=== PATIENT | female | born 1990 | race Caucasian/White ===

== ENCOUNTER 2016-10-08 08:20 | Emergency (ER) | payer BC ==
[~2016-10-08] VITALS: Ht 162.6 cm; Wt 50.8 kg
[2016-10-08] MEDS ORDERED: Lidocaine 2% Visc 15ml soln ORAL ONE (08:45)
[2016-10-08 09:29] LABS: APPEARANCE,URINE CLEAR; KETONES,URINE NEGATIVE (NEGATIVE); LEUKOCYTE ESTERASE ,URINE NEGATIVE (NEGATIVE); NITRITE,URINE NEGATIVE (NEGATIVE); PH,URINE 6.5 (4.5-8.0); PROTEIN,URINE NEGATIVE (NEGATIVE); UROBILINOGEN,URINE NORMAL MG/DL (0.0-1.0)
[2016-10-08 09:31] LABS: ALANINE AMINOTRANSFERASE 10 U/L (3-33); ANION GAP 14 (5-15); ASPARTATE AMINO TRANSFERASE 21 U/L (5-40); CALCIUM 9.4 mg/dL (8.6-10.2); CARBON DIOXIDE 25 mEQ/L (20-30); CHLORIDE 99 mEQ/L (98-107); CREATININE 0.6 mg/dL (0.5-0.9); GLOMERULAR FILTRATION RATE > 60 mL/min (>60); HEMOLYSIS 4; LIPASE 24 U/L (< 60); SODIUM 138 mEQ/L (135-145); TOTAL PROTEIN 6.7 g/dL (6.6-8.7)
[2016-10-08 09:35] LABS: MEAN CORPUSCULAR HEMOGLOBIN 29.1 PG (27.0-31.0); MEAN CORPUSCULAR HGB CONC 33.9 G/DL (32.0-36.0); MEAN CORPUSCULAR VOLUME 86 FL (80-99); MEAN PLATELET VOLUME 8.3 FL (6.5-10.1); PLATELET COUNT 230 K/UL (150-450); RED BLOOD COUNT 5.11 M/UL (4.20-5.40); RED CELL DISTRIBUTION WIDTH 11.6 % (11.6-14.8); WHITE BLOOD COUNT 14.6 K/UL (4.8-10.8)
[2016-10-08 10:07] LABS: BAND NEUTROPHILS % (MANUAL) 0 % (0-8); BASOPHILS % (MANUAL) 0 % (0-2); EOSINOPHILS % (MANUAL) 0 % (0-3); LYMPHOCYTES % (MANUAL) 8 % (20-45); NEUTROPHILS % (MANUAL) 87 % (45-75); PLATELET ESTIMATE ADEQUATE; PLATELET MORPHOLOGY NORMAL; TOTAL CELLS COUNTED 100
--- NOTE | 2016-10-08 14:00 | Emergency Room Report ---
History of Present Illness General Chief Complaint: Abdominal Pain Source: Patient Present Illness HPI This patient states that she developed abdominal pain in her upper abdomen about 30 minutes after eating a sushi dinner yesterday. She that she has had nausea but no vomiting. She did have one episode of diarrhea yesterday. She states that the symptoms come in waves and she'll get nauseated and have abdominal cramping. She denies fever or chills. She denies chest pain or shortness of breath. She was with other people who ate the same food as her yesterday evening and they are not ill. She has no other complaints. Allergies: Coded Allergies: No Known Allergies (Unverified , 10/08/16) Patient History Past Medical History: none, see triage record Past Surgical History: none Social History: Denies: alcohol use, drug use, smoking Last Menstrual Period: 09/27/16 Now: No Reviewed Nursing Documentation: PMH: Agreed, PSxH: Agreed Nursing Documentation-PMH Past Medical History: No Stated History Review of Systems All Other Systems: negative except mentioned in HPI Physical Exam Vital Signs Date Time Temp Pulse Resp B/P Pulse Ox O2 Delivery O2 Flow Rate FiO2 10/08/16 08:29 98.2 70 16 106/72 100 Room Air Sp02 EP Interpretation: reviewed, normal General Appearance: no apparent distress, alert, GCS 15, non-toxic Head: normocephalic, atraumatic Eyes: bilateral eye PERRL, bilateral eye normal inspection ENT: hearing grossly normal, normal pharynx, no angioedema, normal voice Neck: full range of motion, supple/symm/no masses Respiratory: chest non-tender, lungs clear, normal breath sounds, speaking full sentences Cardiovascular #1: regular rate, rhythm, no edema Gastrointestinal: normal bowel sounds, soft, non-distended, no guarding, no rebound, tenderness - TTP in RLQ and epigastrium Rectal: deferred Musculoskeletal: back normal, gait/station normal, normal range of motion, non- tender Neurologic: alert, oriented x3, responsive, motor strength/tone normal, sensory intact, speech normal Psychiatric: judgement/insight normal, memory normal, mood/affect normal, no suicidal/homicidal ideation Skin: normal color, no rash, warm/dry, well hydrated Medical Decision Making Diagnostic Impression: Primary Impression: Abdominal pain Additional Impressions: Nausea Diarrhea ER Course This patient presents with abdominal pain, nausea and an episode of diarrhea. She's had intermittent abdominal cramping. On physical exam the patient is tender to palpation in the right lower quadrant and had an elevated white blood cell count of 14. Therefore, I felt that I should obtain a CT of the abdomen and pelvis to rule out appendicitis. CT shows no evidence of appendicitis. Patient is well appearing overall. During the patient's ED course had resolution of her symptoms. She had no further vomiting, diarrhea or abdominal pain. At this time, I have a low suspicion for serious bacterial infection. The patient was given close return precautions and followup instructions. Labs Test 10/08/16 09:03 White Blood Count 14.6 K/UL (4.8-10.8) Red Blood Count 5.11 M/UL (4.20-5.40) Hemoglobin 14.9 G/DL (12.0-16.0) Hematocrit 43.8 % (37.0-47.0) Mean Corpuscular Volume 86 FL (80-99) Mean Corpuscular Hemoglobin 29.1 PG (27.0-31.0) Mean Corpuscular Hemoglobin Concent 33.9 G/DL (32.0-36.0) Red Cell Distribution Width 11.6 % (11.6-14.8) Platelet Count 230 K/UL (150-450) Mean Platelet Volume 8.3 FL (6.5-10.1) Neutrophils (%) (Auto) % (45.0-75.0) Lymphocytes (%) (Auto) % (20.0-45.0) Monocytes (%) (Auto) % (1.0-10.0) Eosinophils (%) (Auto) % (0.0-3.0) Basophils (%) (Auto) % (0.0-2.0) Differential Total Cells Counted 100 Neutrophils % (Manual) 87 % (45-75) Lymphocytes % (Manual) 8 % (20-45) Monocytes % (Manual) 5 % (1-10) Eosinophils % (Manual) 0 % (0-3) Basophils % (Manual) 0 % (0-2) Band Neutrophils 0 % (0-8) Platelet Estimate Adequate Platelet Morphology Normal Red Blood Cell Morphology Normal Urine Color Pale yellow Urine Appearance Clear Urine pH 6.5 (4.5-8.0) Urine Specific [place] 1.015 (1.005-1.035) Urine Protein Negative (NEGATIVE) Urine Glucose (UA) Negative (NEGATIVE) Urine Ketones Negative (NEGATIVE) Urine Occult Blood Negative (NEGATIVE) Urine Nitrite Negative (NEGATIVE) Urine Bilirubin Negative (NEGATIVE) Urine Urobilinogen Normal MG/DL (0.0-1.0) Urine Leukocyte Esterase Negative (NEGATIVE) Urine HCG, Qualitative Negative Sodium Level 138 mEQ/L (135-145) Potassium Level 4.0 mEQ/L (3.4-4.9) Chloride Level 99 mEQ/L (98-107) Carbon Dioxide Level 25 mEQ/L (20-30) Anion Gap 14 (5-15) Blood Urea Nitrogen 11 mg/dL (7-23) Creatinine 0.6 mg/dL (0.5-0.9) Estimat Glomerular Filtration Rate > 60 mL/min (>60) Glucose Level 107 mg/dL (74-106) Calcium Level 9.4 mg/dL (8.6-10.2) Total Bilirubin 0.4 mg/dL (0.0-1.2) Aspartate Amino Transf (AST/SGOT) 21 U/L (5-40) Alanine Aminotransferase (ALT/SGPT) 10 U/L (3-33) Alkaline Phosphatase 49 U/L (35-104) Total Protein 6.7 g/dL (6.6-8.7) Albumin 4.5 g/dL (3.5-5.2) Globulin 2.2 g/dL Albumin/Globulin Ratio 2.0 (1.0-2.7) Lipase 24 U/L (< 60) CT/MRI/US Diagnostic Results CT/MRI/US Diagnostic Results : Imaging Test Ordered: CT abd/pelvis Impression No evidence of appendicitis. Trace free fluid in the pelvic cul-de-sac. A 2.2 cm cyst is seen in the right ovary. See official report. Last Vital Signs Date Time Temp Pulse Resp B/P Pulse Ox O2 Delivery O2 Flow Rate FiO2 10/08/16 08:29 98.2 70 16 106/72 100 Room Air Disposition: HOME, SELF-CARE Condition: Improved Referrals: NOT CHOSEN IPA/,REFERRING (PCP) Patient Instructions: Abdominal Pain, Adult MARY ANNE DE SANTIAGO D.O. Oct 08, 2016 14:00
[2016-10-08 14:03] VITALS: BP 121/68
== END 2016-10-08 14:05 | disposition home or self-care (01) ==
LOC: EMR 09:00
DX: R10.9 Unspecified abdominal pain (principal); R11.0 Nausea; R19.7 Diarrhea, unspecified; N83.201 Unspecified ovarian cyst, right side
CPT/HCPCS: 36415; 74177; 80053; 81003; 81025; 83690; 85007; 85025; 96374; 96375; 99284; J2405; Q9967

== ENCOUNTER 2017-07-06 02:48 | Inpatient (IN) | payer BC ==
[~2017-07-06] VITALS: Ht 162.6 cm; Wt 53.1 kg
[2017-07-06] VITALS (12 sets, daily range): BP systolic 89–175; BP diastolic 55–102
[2017-07-06] MEDS ORDERED: Morphine Sulfate 2mg/ml Inj IVP PRN ×3 (06:15→17:45)
[2017-07-06] MEDS ORDERED: Norco 5mg/325mg tab ORAL PRN (06:15)
[2017-07-06 09:00] LABS: BASOPHILS % (AUTO) 0.5 % (0.0-2.0); EOSINOPHILS % (AUTO) 0.5 % (0.0-3.0); HEMATOCRIT 39.2 % (37.0-47.0); LYMPHOCYTES % (AUTO) 15.3 % (20.0-45.0); MEAN CORPUSCULAR VOLUME 86 FL (80-99); MONOCYTES % (AUTO) 10.3 % (1.0-10.0); NEUTROPHILS % (AUTO) 73.5 % (45.0-75.0); PLATELET COUNT 205 K/UL (150-450); RED BLOOD COUNT 4.57 M/UL (4.20-5.40); RED CELL DISTRIBUTION WIDTH 10.9 % (11.6-14.8); WHITE BLOOD COUNT 10.3 K/UL (4.8-10.8)
[2017-07-06] MEDS ORDERED: D5 1/2NS 1,000 ML IV SCH (09:00)
[2017-07-06 09:13] LABS: ANION GAP 9 mmol/L (5-15); BLOOD UREA NITROGEN 6 mg/dL (7-18); CALCIUM 7.6 MG/DL (8.5-10.1); CARBON DIOXIDE 25 MMOL/L (21-32); CHLORIDE 106 MMOL/L (98-107); CREATININE 0.7 MG/DL (0.55-1.30); PHOSPHORUS 3.6 MG/DL (2.5-4.9); POTASSIUM 3.4 MMOL/L (3.5-5.1); SODIUM 140 MMOL/L (136-145)
[2017-07-06] MEDS ORDERED: LR 1000ml ONE (10:00)
[2017-07-06] MEDS ORDERED: Propofol 200mg/20ml IV ONE (10:00)
[2017-07-06] MEDS ORDERED: Midazolam 2mg/2ml Inj ONE (10:00)
[2017-07-06] MEDS ORDERED: fentaNYL 100 mcg/2 mL IV ONE (10:00)
[2017-07-06] MEDS ORDERED: NS Irrig 1000ml ONE (10:00)
[2017-07-06] MEDS ORDERED: Zemuron 50mg/5ml Inj IV ONE (10:00)
[2017-07-06] MEDS ORDERED: Sterile Water Irrig 1000ml IRRIG ONE (10:00)
[2017-07-06] MEDS ORDERED: Hydromorphone 0.5mg/0.5ml inj ONE (10:00)
[2017-07-06] MEDS: cefTRIAXone 1 GM in D5W 55 ML IVPB SCH (10:40)
--- NOTE | 2017-07-06 11:00 | History & Physical ---
History and Physical History & Physicial Diuctated for Int Med-Dr Mccormack no. [id number]. NOMI REESE Jul 06, 2017 11:00
--- NOTE | 2017-07-06 11:56 | Pre-Procedure Note/Attestation ---
Pre-Procedure Note/Attestation Complete Prior to Procedure Procedure Narrative: lap appy Indications for Procedure Pre-Operative Diagnosis: acute appendicitis Attestation I attest that I discussed the nature of the procedure; its benefits; risks and complications; and alternatives (and the risks and benefits of such alternatives ), prior to the procedure, with the patient (or the patient's legal financial services sales representative). I attest that, if there was a reasonable possibility of needing a blood transfusion, the patient (or the patient's legal financial services sales representative) was given the [facility] standardized written summary, pursuant to the Robert Qian Blood Safety Act ([place] Health and Safety Code # 1645, as amended). I attest that I re-evaluated the patient just prior to the surgery and that there has been no change in the patient's H&P, except as documented below: Dilip Ramirez Jul 06, 2017 11:56
--- NOTE | 2017-07-06 12:02 | Consultation ---
History of Present Illness General Date patient seen: Jul 06, 2017 Reason for Consultation: acute appendicitis Present Illness HPI 26 year old otherwise healthy female was transferred from [place] for acute appendicitis. As per patient, she was in her normal state of health until last night when she began to note some cramping RLQ abdominal pain. Pain described as 7-9/10 cramping RLQ pain without radiation. Associated nausea and self induced emesis. no fever or chills. Pain severe causing her to kneel over and wait to be taken to hospital. has never had prior similar symptoms. normal BM' s. no pmhx, no pshx, no meds, no fhx. does not smoke or do drugs. social etoh. Allergies: Coded Allergies: No Known Allergies (Unverified , 10/08/16) Patient History History Provided By: Patient Healthcare decision maker Resuscitation status Full Code Advanced Directive on File No Past Medical/Surgical History Past Medical/Surgical History: (1) Appendicitis, acute Review of Systems Constitutional: Denies: no symptoms, see HPI, chills, sweats, fever, malaise, weakness, other Eye: Denies: no symptoms, see HPI, eye pain, blurred vision, tearing, double vision, nose pain, nose congestion, acuity changes, discharge, other ENT: Denies: no symptoms, see HPI, ear pain, ear discharge, nose pain, nose congestion, throat pain, throat swelling, mouth pain, hearing loss, nasal discharge, other Respiratory: Denies: no symptoms, see HPI, cough, orthopnea, shortness of breath, stridor, wheezing, JOSEPH, sputum, other Cardiovascular: Denies: no symptoms, see HPI, chest pain, edema, palpitations, syncope, PND, other Gastrointestinal: Reports: abdominal pain, nausea, vomiting Genitourinary: Denies: no symptoms, see HPI, discharge, dysuria, frequency, hematuria, pain, retention, incontinence, urgency, vag bleed/dc, other Musculoskeletal: Denies: no symptoms, see HPI, back pain, gout, joint pain, joint swelling, muscle pain, muscle stiffness, other Skin: Denies: no symptoms, see HPI, rash, change in color, change in hair/nails , dryness, lesions, other Psychiatric: Denies: no symptoms, see HPI, prior hx, anxiety, depressed feelings, emotional problems, SI, HI, hallucinations, other Neurological: Denies: no symptoms, see HPI, headache, numbness, paresthesia, seizure, tingling, tremors, focal weakness, syncope, dizziness, other Endocrine: Denies: no symptoms, see HPI, excessive sweating, flushing, intolerance to temperature, increased thirst, increased urine, unexplained weight loss, other Hematologic/Lymphatic: Denies: no symptoms, see HPI, anemia, blood clots, easy bleeding, easy bruising, swollen glands, diathesis, other Physical Exam General Appearance: no apparent distress Lines, tubes and drains: peripheral HEENT: normocephalic, atraumatic, mucous membranes moist, PERRL Neck: supple, normal inspection Respiratory/Chest: lungs clear, normal breath sounds, no respiratory distress, no accessory muscle use Cardiovascular/Chest: normal peripheral pulses, normal rate, regular rhythm Abdomen: normal bowel sounds, soft, no organomegaly, no mass, guarding, rebound , tender, other - RLQ tendneress with guarding. rebound. Extremities: non-tender, normal inspection Skin Exam: normal pigmentation, warm/dry Neurologic: furniture crater II-XII grossly normal, alert, oriented x 3, responsive Last 24 Hour Vital Signs Date Time Temp Pulse Resp B/P (MAP) Pulse Ox O2 Delivery O2 Flow Rate FiO2 07/06/17 11:09 97.3 07/06/17 08:00 97.3 69 16 89/55 97 07/06/17 07:19 97.9 79 19 100/62 98 Room Air Laboratory Tests Test 07/06/17 08:25 White Blood Count 10.3 K/UL (4.8-10.8) Red Blood Count 4.57 M/UL (4.20-5.40) Hemoglobin 13.0 G/DL (12.0-16.0) Hematocrit 39.2 % (37.0-47.0) Mean Corpuscular Volume 86 FL (80-99) Mean Corpuscular Hemoglobin 28.5 PG (27.0-31.0) Mean Corpuscular Hemoglobin Concent 33.2 G/DL (32.0-36.0) Red Cell Distribution Width 10.9 % (11.6-14.8) L Platelet Count 205 K/UL (150-450) Mean Platelet Volume 7.8 FL (6.5-10.1) Neutrophils (%) (Auto) 73.5 % (45.0-75.0) Lymphocytes (%) (Auto) 15.3 % (20.0-45.0) L Monocytes (%) (Auto) 10.3 % (1.0-10.0) H Eosinophils (%) (Auto) 0.5 % (0.0-3.0) Basophils (%) (Auto) 0.5 % (0.0-2.0) Prothrombin Time 10.2 SEC (9.30-11.50) Prothromb Time International Ratio 1.0 (0.9-1.1) Activated Partial Thromboplast Time 30 SEC (23-33) Sodium Level 140 MMOL/L (136-145) Potassium Level 3.4 MMOL/L (3.5-5.1) L Chloride Level 106 MMOL/L (98-107) Carbon Dioxide Level 25 MMOL/L (21-32) Anion Gap 9 mmol/L (5-15) Blood Urea Nitrogen 6 mg/dL (7-18) L Creatinine 0.7 MG/DL (0.55-1.30) Estimat Glomerular Filtration Rate > 60 mL/min (>60) Glucose Level 99 MG/DL (74-106) Calcium Level 7.6 MG/DL (8.5-10.1) L Phosphorus Level 3.6 MG/DL (2.5-4.9) Magnesium Level 1.8 MG/DL (1.8-2.4) Height (Feet): 5 Height (Inches): 4.00 Weight (Pounds): 117 Medications Current Medications Medications (Trade) Dose Ordered Sig/Charlie Route PRN Reason Start Time Stop Time Status Last Admin Dose Admin Acetaminophen (Tylenol) 650 mg Q6H PRN ORAL Mild Pain/Temp > 100.5 07/06/17 06:15 08/05/17 06:14 Acetaminophen/ Hydrocodone Bitart ([place] 5/325) 1 tab Q6H PRN ORAL Mild to Moderate Pain 07/06/17 06:15 07/13/17 06:14 Ceftriaxone Sodium 1 gm/ Dextrose 55 ml @ 110 mls/hr DAILY IVPB 07/06/17 09:30 07/13/17 09:29 07/06/17 10:40 Dextrose/Sodium Chloride 1,000 ml @ 100 mls/hr Q10H IV 07/06/17 09:00 08/05/17 08:59 07/06/17 11:31 Metronidazole 100 ml @ 100 mls/hr Q8HR IVPB 07/06/17 14:00 07/13/17 13:59 Morphine Sulfate (Morphine Sulfate) 2 mg Q4H PRN IVP Severe Pain (Pain Scale 7-10) 07/06/17 06:15 07/13/17 06:14 07/06/17 10:39 Ondansetron HCl (Zofran) 4 mg Q4H PRN IVP Nausea & Vomiting 07/06/17 06:15 08/05/17 06:14 07/06/17 10:39 Assessment/Plan Problem List: (1) Appendicitis, acute Assessment & Plan: 26F with acute appendicitis. afebrile, HD stable, exam as above. CT reviewed. initially with WBC 15k. -to OR for lap appy consent npo iv fluids abx ICD Codes: K35.80 - Unspecified acute appendicitis SNOMED: [id number] Status: stable Dilip Ramirez Jul 06, 2017 12:01
[2017-07-06] MEDS ORDERED: Lidocaine 1% 10mg/ml/EPI 0.01mg/ml 50ml INJ ONE (13:37)
--- NOTE | 2017-07-06 14:15 | History and Physical Report ---
DATE OF ADMISSION: 07/06/2017 CHIEF COMPLAINT: The patient is a 26-year-old white female presents with complaint of abdominal pain. HISTORY OF PRESENT ILLNESS: History of present illness began yesterday afternoon, 07/05/2017. The patient began to experience periumbilical pain. The patient denies fevers or chills. The patient complains of nausea with vomiting. The patient presented initially to [facility] emergency room. CT of the abdomen showed free fluid in the pelvis consistent with acute appendicitis. The patient is transferred to [facility] for insurance purposes. The patient is admitted for abdominal pain to rule out acute appendicitis. REVIEW OF SYSTEMS: CONSTITUTIONAL: The patient denies weight loss or weight gain. The patient denies fevers or chills. HEENT: The patient denies ear or throat pain. The patient denies headache. CARDIOVASCULAR: The patient denies palpitations or chest pain. CHEST: The patient denies wheeze or shortness of breath. ABDOMEN: The patient complains of periumbilical pain as above. The patient denies diarrhea or constipation. The patient complains of nausea with vomiting. GENITOURINARY: The patient denies dysuria or increased frequency of urination. NEUROMUSCULAR: The patient denies seizures or generalized weakness. PAST MEDICAL HISTORY: The patient denies. The patient states her last menstrual period was 06/17/2017. PAST SURGICAL HISTORY: The patient denies. CURRENT MEDICATIONS: The patient denies. ALLERGIES: No known drug allergies. SOCIAL HISTORY: The patient has a long-term boyfriend. The patient denies tobacco use. The patient admits to social alcohol use. PHYSICAL EXAMINATION: VITAL SIGNS: On admission, temperature 97.9, respirations 19, pulse 79, and blood pressure 100/62. GENERAL: The patient is well developed, well nourished white female, in no apparent distress. HEENT: Eyes, pupils are equal and responsive to light and accommodation. Extraocular movements are intact. NECK: Supple without lymphadenopathy. CHEST: Lungs are clear to auscultation bilaterally without wheezes or rales. CARDIOVASCULAR: Regular rhythm and rate. S1 and S2 normal without murmurs, rubs, or gallops. ABDOMEN: Soft, nondistended with decreased bowel sounds. There is tenderness to palpation right lower quadrant. There is voluntary guarding noted. There is no rebound noted. EXTREMITIES: Negative for clubbing, cyanosis, or edema. RECTAL/GENITAL: Refused. NEUROLOGIC: Cranial nerves II through XII are grossly intact without focal deficits. Motor strength is 5/5 bilaterally. Deep tendon reflexes are 2+ plantar. LABORATORY STUDIES: WBC 15.7, hemoglobin 13.2, hematocrit 38.6, and platelets 137,000. Sodium 137, potassium 3.4, chloride 104, CO2 25, BUN 7, creatinine 0.68, and glucose 95. Liver function tests within normal limits. Urinalysis showed negative leukocyte esterase. ASSESSMENT: This is a 26-year-old white female: 1. Abdominal pain. 2. Nausea with vomiting. 3. Probable acute appendicitis. TREATMENT: 1. Abdominal pain/nausea/vomiting/appendicitis. 2. A General Surgery consultation was obtained with Dr. Ramirez. 3. An initial CAT scan showed mild free fluid in the pelvis consistent with acute appendicitis. We will follow recommendations of Surgery. Brian Roberts M.D. DR: SUSAN JOB#: [id number] CC:
[2017-07-06] MEDS ORDERED: NS Irrig 1000ml IRRIG ONE (15:00)
[2017-07-06] MEDS ORDERED: LR 1000ml 1,000 ML IVLG SCH (15:04)
--- NOTE | 2017-07-06 15:09 | Anethesia Preoperative Eval ---
Anesthesia Pre-op PMH/ROS General Date of Evaluation: Jul 06, 2017 Time of Evaluation: 14:12 Anesthesiologist: Almita ASA Score: ASA 1 Mallampati Score Class I : Soft palate, uvula, fauces, pillars visible Class II: Soft palate, uvula, fauces visible Class III: Soft palate, base of uvula visible Class IV: Only hard plate visible Mallampati Classification: Class I Surgeon: James Diagnosis: Acute appendicitis Surgical Procedure: Lap appy Allergies: Coded Allergies: No Known Allergies (Unverified , 10/08/16) Past Medical History Cardiovascular: Denies: HTN, CAD, PR, valve dz, arrhythmia, other Pulmonary: Denies: asthma, COPD, TOM, other Gastrointestinal/Genitourinary: Denies: GERD, CRI, ESRD, other Neurologic/Psychiatric: Denies: dementia, CVA, depression/anxiety, TIA, other Endocrine: Denies: DM, hypothyroidism, steroids, other HEENT: Denies: cataract (L), cataract (R), glaucoma, DOUGLAS (L), DOUGLAS (R), other Hematology/Immune: Denies: anemia, DVT, bleeding disorder, other Musculoskeletal/Integumentary: Denies: OA, RA, DJD, DDD, edema, other PMH Narrative: Denies significant PMH PSxH Narrative: Vaginal surgery Anesthesia Pre-op Phys. Exam Physician Exam Last Vital Signs Date Time Temp Pulse Resp B/P (MAP) Pulse Ox O2 Delivery O2 Flow Rate FiO2 07/06/17 11:09 97.3 07/06/17 08:00 69 16 89/55 97 07/06/17 07:19 Room Air Constitutional: NAD Neurologic: CN 2-12 intact Cardiovascular: RRR, no M/R/G Respiratory: CTA Gastrointestinal: S/NT/ND Airway Exam Mallampati Score: Class I MO: full ROM: full Teeth: intact Anesthesia Pre-op A/P Labs Hematology Test 07/06/17 08:25 White Blood Count 10.3 K/UL (4.8-10.8) Red Blood Count 4.57 M/UL (4.20-5.40) Hemoglobin 13.0 G/DL (12.0-16.0) Hematocrit 39.2 % (37.0-47.0) Mean Corpuscular Volume 86 FL (80-99) Mean Corpuscular Hemoglobin 28.5 PG (27.0-31.0) Mean Corpuscular Hemoglobin Concent 33.2 G/DL (32.0-36.0) Red Cell Distribution Width 10.9 % (11.6-14.8) L Platelet Count 205 K/UL (150-450) Mean Platelet Volume 7.8 FL (6.5-10.1) Neutrophils (%) (Auto) 73.5 % (45.0-75.0) Lymphocytes (%) (Auto) 15.3 % (20.0-45.0) L Monocytes (%) (Auto) 10.3 % (1.0-10.0) H Eosinophils (%) (Auto) 0.5 % (0.0-3.0) Basophils (%) (Auto) 0.5 % (0.0-2.0) Coagulation Test 07/06/17 08:25 Prothrombin Time 10.2 SEC (9.30-11.50) Prothromb Time International Ratio 1.0 (0.9-1.1) Activated Partial Thromboplast Time 30 SEC (23-33) Chemistry Test 07/06/17 08:25 Sodium Level 140 MMOL/L (136-145) Potassium Level 3.4 MMOL/L (3.5-5.1) L Chloride Level 106 MMOL/L (98-107) Carbon Dioxide Level 25 MMOL/L (21-32) Anion Gap 9 mmol/L (5-15) Blood Urea Nitrogen 6 mg/dL (7-18) L Creatinine 0.7 MG/DL (0.55-1.30) Estimat Glomerular Filtration Rate > 60 mL/min (>60) Glucose Level 99 MG/DL (74-106) Calcium Level 7.6 MG/DL (8.5-10.1) L Phosphorus Level 3.6 MG/DL (2.5-4.9) Magnesium Level 1.8 MG/DL (1.8-2.4) Urine Test Test 07/06/17 13:20 Urine HCG, Qualitative Negative Risk Assessment & Plan Assessment: Acute appendicitis in a healthy female Plan: GETA Status Change Before Surgery: No Pre-Antibiotics Drug: Ancef Given Within 1 Hr of Incision: Yes Time Given: 14:32 HANS MAURO M.D. Jul 06, 2017 15:09
--- NOTE | 2017-07-06 15:10 | Immediate Post-Op Evaluation ---
Immediate Post-Op Evalulation Immediate Post-Op Evalulation Procedure: Lap appy Date of Evaluation: Jul 06, 2017 Time of Evaluation: 16:12 IV Fluids: 1000 Blood Pressure Systolic: 104 Blood Pressure Diastolic: 61 Pulse Rate: 100 Respiratory Rate: 13 O2 Sat by Pulse Oximetry: 100 Temperature (Fahrenheit): 99.5 Pain Score (1-10): 1 Nausea: No Vomiting: No Complications No complications Patient Status: awake, patent, extubated, none Hydration Status: adequate Drug: Ancef Given Within 1 Hr of Incision: Yes Time Given: 14:32 HANS MAURO M.D. Jul 06, 2017 15:10
[2017-07-06] MEDS ORDERED: Meperidine 50mg/ml Inj(FOR RIGORS ONLY) IVP PRN (15:15)
[2017-07-06] MEDS ORDERED: LORazepam Inj 2mg/ml 1ml IV PRN (15:15)
[2017-07-06] MEDS ORDERED: DiphenhydrAMINE 50mg/ml Inj IVP PRN ×2 (15:15→16:45)
[2017-07-06] MEDS ORDERED: Hydromorphone 0.5mg/0.5ml inj IVP PRN (15:15)
--- NOTE | 2017-07-06 16:23 | Brief Operative Note ---
Immediate Post Operative Note Operative Note Pre-op Diagnosis: acute appendicitis Procedure: laparoscopic appendectomy Findings: consistent w/pre-op dx studies Surgeon: shiva Anesthesiologist: Tanner Anesthesia: general, local Specimen: yes - appendix Complications: none Condition: stable Fluids: see records Estimated Blood Loss: minimal Drains: none Implant(s) used?: No Dilip Ramirez Jul 06, 2017 16:23
[2017-07-06] MEDS ORDERED: Ketorolac 30mg Inj IV PRN (16:45)
[2017-07-06] MEDS ORDERED: Milk of Magnesia 30ml Ud ORAL PRN (16:45)
--- NOTE | 2017-07-06 17:30 | Operative Note - Dictated ---
DATE OF OPERATION: 07/06/2017 PREOPERATIVE DIAGNOSIS: Acute appendicitis. POSTOPERATIVE DIAGNOSIS: Acute appendicitis. OPERATION PERFORMED: Laparoscopic appendectomy. ATTENDING SURGEON: Dilip Ramirez M.D. SHANK RANDER: None. ANESTHESIOLOGIST: Robert Recio M.D. 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 COMPLICATIONS: None. ESTIMATED BLOOD LOSS: Minimal. IV FLUIDS: 1000 mL. SPECIMENS: Appendix sent to pathology for review. DRAINS: None. IMPLANTS: None. COUNTS: Sponge and needle count correct x2. WOUND CLASSIFICATION: Class 3. IV ANTIBIOTICS: The patient was given scheduled Rocephin and Flagyl for acute active inflammatory process. INDICATIONS FOR PROCEDURE: This is a 26-year-old female, who began to experience excruciating right lower quadrant abdominal pain one day prior to admission. The patient states that pain was acute on onset mainly in the right lower quadrant, cramping, 7 to 9/10 with associated nausea and self-induced emesis. The patient initially went to [place] emergency room for evaluation, at which time, was noted to have leukocytosis to 15,[address] scan, which demonstrated acute nonperforated appendicitis. The patient was then transferred to [facility] for remainder of care. On examination, the patient has focal right lower quadrant abdominal tenderness at McBurney's point. She had voluntary guarding and rebound as well. Given the above, appendectomy was indicated and recommended. The risks, benefits, and alternatives to surgery were discussed with the patient in detail. The patient expressed understanding and consented to surgery. OPERATIVE NOTE: The patient was taken to the operating room and placed on the operating table in supine position with bilateral arms out. All bony prominences were well padded with gel pads. Preoperative time-out was taken identifying the patient, procedure, operative staff, and surgical staff. SCDs were placed. No English catheter was inserted given the patient voided just prior to entering the operating room. The patient was on scheduled Rocephin and Flagyl for acute active inflammatory process prior to entering the operating room. General anesthesia was induced and the patient was intubated. The left arm was tucked. The abdomen was then clipped, prepped, and draped in standard surgical fashion. We began making an umbilical incision using a fresh #11 blade. Incision was carried down to the fascia, which was elevated and incised. Entry into the abdomen was confirmed visually using the open Gale technique without complication. The Gale trocar was then placed and the abdomen was insufflated to 12 to 15 mmHg. The patient tolerated the insufflation well. Laparoscope was inserted and no injury from initial trocar placement was noted. Upon evaluating the abdomen, there was some murky fluid in the pelvis. Otherwise, abdominal evaluation was negative without significant pathology. Secondary trocars were placed under direct visualization beginning with a 12 mm trocar in the left lower quadrant and a 5 mm trocar in the suprapubic region. No injury from secondary trocar placement was noted. Laparoscopic graspers were used and the appendix was identified to be retrocecal. The appendix was freed from its peritoneal attachments, at which point, the base and the tip could be identified as well as the mesentery. Once this was complete, the appendix was safely identified and noted to be inflamed, but not perforated and the base was cleared. A window was made at the base of the mesentery using a [place] dissector. A laparoscopic linear stapler was then inserted and the base of the appendix was stapled and divided. In a similar fashion, using a laparoscopic linear stapler, the mesoappendix was then stapled and divided. Mild oozing from the appendiceal artery was identified and laparoscopic clips were placed and good hemostasis was obtained. The appendix was then placed in endoscopic retrieval bag and removed from the abdomen and sent to pathology for review. The abdomen was then reinspected and the appendiceal base of staple line was identified and noted to be intact without complication. The mesoappendix and appendiceal artery were identified and hemostatic. The murky fluid in the pelvis was then evacuated and the pelvis was irrigated and evacuated until clear. The remainder of the abdomen was inspected and no other abnormalities at this time were identified. We then began our closure. Secondary trocars were removed under direct visualization. The umbilical trocar was then removed and the abdomen allowed to desufflate. Local anesthetic was inserted for the fascia and skin incision sites and all port sites. Following this, we began closure of the fascial incisions of the umbilical and 12 mm left lower quadrant port using a #0 Vicryl suture. Once this was completed, the skin incisions were closed using 4-0 Monocryl subcuticular sutures. The patient tolerated the procedure well. Wounds were cleaned with skin glue and Steri-Strips were applied. The patient was then awakened and taken to the postanesthetic care unit in stable condition. Dilip Ramirez M.D. DR: IRENE JOB#: [id number] CC:
[2017-07-06] MEDS: Docusate 100mg cap ORAL SCH (17:46)
--- NOTE | 2017-07-06 21:48 | Diagnostic Imaging Report ---
Indication: Dyspnea Comparison: None A single view chest radiograph was obtained. Findings: Cardiomediastinal appearance is within normal limits for age. Pulmonary vascularity is appropriate. The diaphragmatic contour is smooth and costophrenic angles are sharp. No pleural effusions are identified. The bones are unremarkable. Impression: No acute findings
[2017-07-07] VITALS (7 sets, daily range): BP systolic 85–100; BP diastolic 50–63
[2017-07-07] MEDS: Morphine Sulfate 4mg/ml Inj IVP PRN ×2 (03:24→07:52)
[2017-07-07 06:57] LABS: BASOPHILS % (AUTO) 0.5 % (0.0-2.0); EOSINOPHILS % (AUTO) 0.8 % (0.0-3.0); HEMATOCRIT 35.2 % (37.0-47.0); HEMOGLOBIN 11.8 G/DL (12.0-16.0); LYMPHOCYTES % (AUTO) 15.9 % (20.0-45.0); MEAN CORPUSCULAR VOLUME 87 FL (80-99); MONOCYTES % (AUTO) 7.6 % (1.0-10.0); NEUTROPHILS % (AUTO) 75.1 % (45.0-75.0); PLATELET COUNT 170 K/UL (150-450); RED BLOOD COUNT 4.06 M/UL (4.20-5.40); WHITE BLOOD COUNT 7.3 K/UL (4.8-10.8)
[2017-07-07 07:14] LABS: ANION GAP 9 mmol/L (5-15); BLOOD UREA NITROGEN 7 mg/dL (7-18); CALCIUM 7.5 MG/DL (8.5-10.1); CARBON DIOXIDE 25 MMOL/L (21-32); CHLORIDE 105 MMOL/L (98-107); CREATININE 0.7 MG/DL (0.55-1.30); POTASSIUM 3.6 MMOL/L (3.5-5.1); SODIUM 139 MMOL/L (136-145)
[2017-07-07] MEDS: cefTRIAXone 1 GM in D5W 55 ML IVPB SCH (08:45)
[2017-07-07] MEDS: Docusate 100mg cap ORAL SCH ×2 (08:45→17:36)
--- NOTE | 2017-07-07 11:11 | General Progress Note ---
Progress Note Progress Note Surgery: doing okay since surgery. incisional tenderness. mild nausea. no emesis. has not been moving or ambulatory. states it hurts from incisions when she moves. attempted to ambulate this AM but felt dizzy. oral intake minimal. abdomen soft, nd, incisional tenderness, no RLQ tenderness, incisions c/d/i POD #1 s/p lap appy for acute appendicitis. afebrile, HD stable, doing well. labs okay -needs better PO intake -still requiring IV pain meds for incisional tenderness. transition to oral as tolerated -d/c abx -ambulate and OOB as tolerated -500cc NS bolus -could potentially go home today but with minimal oral intake, requirement for IV pain meds, and not being fully ambulatory yet she may need to stay another day. will re-evaluate in PM. Dilip Ramirez Jul 07, 2017 11:11
[2017-07-07] MEDS ORDERED: Morphine Sulfate 4mg/ml Inj IVP PRN (11:15)
--- NOTE | 2017-07-07 11:29 | 48 Hour Post Anesthesia Eval ---
Post Anesthesia Evaluation Procedure: Lap appy Date of Evaluation: Jul 07, 2017 Time of Evaluation: 11:40 Blood Pressure Systolic: 93 0: 50 Pulse Rate: 72 Respiratory Rate: 18 Temperature (Fahrenheit): 98.2 O2 Sat by Pulse Oximetry: 96 Airway: patent Nausea: No Vomiting: No Pain Intensity: 4 If pain is > 6 Comment: Patient should request for pain meds sooner. Discussed with her. Hydration Status: adequate Cardiopulmonary Status: Stable Mental Status/LOC: patient returned to baseline Follow-up Care/Observations: As per surgery Post-Anesthesia Complications: No anesthetic complication Follow-up care needed: N/A HANS MAURO M.D. Jul 07, 2017 11:29
[2017-07-07] MEDS ORDERED: Sodium Chloride 500ML 500 ML IV ONE (11:30)
[2017-07-07] MEDS: HYDROcodone/Acetamin 10/325 tab ORAL PRN ×3 (11:52→20:21)
--- NOTE | 2017-07-07 17:04 | Consultation ---
History of Present Illness General Date patient seen: Jul 07, 2017 Reason for Consultation: acute appendicitis Present Illness HPI 26 year old female presente with abdominal pain, diagnosed to have acute appendicitis underwent appendectomy, now complaining of intractable pain. Allergies: Coded Allergies: No Known Allergies (Unverified , 10/08/16) Patient History Healthcare decision maker Resuscitation status Full Code Advanced Directive on File No Review of Systems Eye: Reports: no symptoms Physical Exam General Appearance: WD/WN, alert Lines, tubes and drains: peripheral HEENT: normocephalic, atraumatic Neck: non-tender, normal alignment Respiratory/Chest: chest wall non-tender, lungs clear Breasts: no masses Cardiovascular/Chest: normal rate Abdomen: normal bowel sounds Genitourinary/Rectal: other - surgicl scar Last 24 Hour Vital Signs Date Time Temp Pulse Resp B/P (MAP) Pulse Ox O2 Delivery O2 Flow Rate FiO2 07/07/17 16:00 97.9 66 20 100/59 99 Room Air 07/07/17 12:58 98.2 81 20 100/59 99 Room Air 07/07/17 12:51 98.2 07/07/17 11:29 72 18 96 07/07/17 10:55 72 93/50 96 Room Air 07/07/17 09:04 80 85/54 07/07/17 09:02 98.2 76 18 87/56 96 Room Air 07/07/17 08:22 98.4 07/07/17 04:00 98.4 70 18 98/60 99 07/07/17 04:00 99 Room Air 07/06/17 20:44 98.6 07/06/17 20:00 98.6 75 18 108/55 100 Room Air 07/06/17 18:16 98.0 07/06/17 17:05 98.0 80 21 101/63 100 Nasal Cannula 3.0 Intake and Output 07/06/17 07/07/17 19:00 07:00 Intake Total 1355 ml 100 ml Output Total 20 ml Balance 1335 ml 100 ml IV Total 1355 ml 100 ml Estimated Blood Loss 20 ml Laboratory Tests Test 07/07/17 06:20 White Blood Count 7.3 K/UL (4.8-10.8) Red Blood Count 4.06 M/UL (4.20-5.40) L Hemoglobin 11.8 G/DL (12.0-16.0) L Hematocrit 35.2 % (37.0-47.0) L Mean Corpuscular Volume 87 FL (80-99) Mean Corpuscular Hemoglobin 29.2 PG (27.0-31.0) Mean Corpuscular Hemoglobin Concent 33.6 G/DL (32.0-36.0) Red Cell Distribution Width 11.0 % (11.6-14.8) L Platelet Count 170 K/UL (150-450) Mean Platelet Volume 7.7 FL (6.5-10.1) Neutrophils (%) (Auto) 75.1 % (45.0-75.0) H Lymphocytes (%) (Auto) 15.9 % (20.0-45.0) L Monocytes (%) (Auto) 7.6 % (1.0-10.0) Eosinophils (%) (Auto) 0.8 % (0.0-3.0) Basophils (%) (Auto) 0.5 % (0.0-2.0) Sodium Level 139 MMOL/L (136-145) Potassium Level 3.6 MMOL/L (3.5-5.1) Chloride Level 105 MMOL/L (98-107) Carbon Dioxide Level 25 MMOL/L (21-32) Anion Gap 9 mmol/L (5-15) Blood Urea Nitrogen 7 mg/dL (7-18) Creatinine 0.7 MG/DL (0.55-1.30) Estimat Glomerular Filtration Rate > 60 mL/min (>60) Glucose Level 83 MG/DL (74-106) Calcium Level 7.5 MG/DL (8.5-10.1) L Height (Feet): 5 Height (Inches): 4.00 Weight (Pounds): 117 Medications Current Medications Medications (Trade) Dose Ordered Sig/Charlie Route PRN Reason Start Time Stop Time Status Last Admin Dose Admin Acetaminophen (Tylenol) 650 mg Q6H PRN ORAL Mild Pain (Pain Scale 1-3) 07/06/17 17:45 08/05/17 17:44 Acetaminophen/ Hydrocodone Bitart ([place] 10/325) 1 ea Q4H PRN ORAL Severe Pain (Pain Scale 7-10) 07/06/17 17:45 07/13/17 17:44 07/07/17 16:18 Acetaminophen/ Hydrocodone Bitart ([place] 5/325) 1 tab Q4H PRN ORAL Moderate Pain (Pain Scale 4-6) 07/06/17 17:45 07/13/17 17:44 Docusate Sodium (Colace) 100 mg TWICE A DAY ORAL 07/06/17 18:00 08/05/17 17:59 07/07/17 08:45 Morphine Sulfate (Morphine Sulfate) 4 mg Q4H PRN IVP Breakthrough Pain 07/07/17 11:15 07/14/17 11:14 Ondansetron HCl (Zofran) 4 mg Q4H PRN IVP Nausea & Vomiting 07/06/17 06:15 08/05/17 06:14 07/06/17 10:39 Assessment/Plan Problem List: (1) Intractable abdominal pain ICD Codes: R10.9 - Unspecified abdominal pain SNOMED: 73284172, 158597774 (2) Appendicitis, acute ICD Codes: K35.80 - Unspecified acute appendicitis SNOMED: 21607945 Assessment/Plan titrate pain meds, combination of Morphine and [place] dvt prophylaxis advance diet as tolerated dc planning for am. KELLIE SARAH Jul 07, 2017 17:04
--- NOTE | 2017-07-07 17:13 | Internal Med Progress Note ---
Subjective Date of Service: Jul 07, 2017 Physician Name Nomi Reese Attending Physician Lance Mccormack MD Current Medications Medications (Trade) Dose Ordered Sig/Charlie Route PRN Reason Start Time Stop Time Status Last Admin Dose Admin Acetaminophen (Tylenol) 650 mg Q6H PRN ORAL Mild Pain (Pain Scale 1-3) 07/06/17 17:45 08/05/17 17:44 Acetaminophen/ Hydrocodone Bitart ([place] 10/325) 1 ea Q4H PRN ORAL Severe Pain (Pain Scale 7-10) 07/06/17 17:45 07/13/17 17:44 07/07/17 16:18 Acetaminophen/ Hydrocodone Bitart ([place] 5/325) 1 tab Q4H PRN ORAL Moderate Pain (Pain Scale 4-6) 07/06/17 17:45 07/13/17 17:44 Docusate Sodium (Colace) 100 mg TWICE A DAY ORAL 07/06/17 18:00 08/05/17 17:59 07/07/17 08:45 Morphine Sulfate (Morphine Sulfate) 4 mg Q4H PRN IVP Breakthrough Pain 07/07/17 11:15 07/14/17 11:14 Ondansetron HCl (Zofran) 4 mg Q4H PRN IVP Nausea & Vomiting 07/06/17 06:15 08/05/17 06:14 07/06/17 10:39 Allergies: Coded Allergies: No Known Allergies (Unverified , 10/08/16) ROS Limited/Unobtainable: No Constitutional: Reports: no symptoms HEENT: Reports: no symptoms Cardiovascular: Reports: no symptoms Respiratory: Reports: no symptoms Gastrointestinal/Abdominal: Reports: abdominal pain Genitourinary: Reports: no symptoms Neurologic/Psychiatric: Reports: no symptoms Subjective 26 YO F admitted with abdominal pain. S/P laparoscopic appendectomy 07/06/17. Cover for Int Fabricio-Dr Mccormack. Objective Last Vital Signs Date Time Temp Pulse Resp B/P (MAP) Pulse Ox O2 Delivery O2 Flow Rate FiO2 07/07/17 16:00 97.9 66 20 100/59 99 Room Air 07/06/17 17:05 3.0 General Appearance: WD/WN, no apparent distress, alert EENT: PERRL/EOMI, normal ENT inspection, TMs normal Neck: non-tender, normal alignment, supple Cardiovascular: normal peripheral pulses, normal rate, regular rhythm, no gallop/murmur, no JVD Respiratory/Chest: chest wall non-tender, lungs clear, normal breath sounds, no respiratory distress, no accessory muscle use Abdomen: decreased bowel sounds, distended, guarding, tender Extremities: normal range of motion, non-tender 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 grossly normal, no motor/sensory deficits Skin: normal pigmentation, warm/dry Laboratory Tests Test 07/07/17 06:20 White Blood Count 7.3 K/UL (4.8-10.8) Red Blood Count 4.06 M/UL (4.20-5.40) L Hemoglobin 11.8 G/DL (12.0-16.0) L Hematocrit 35.2 % (37.0-47.0) L Mean Corpuscular Volume 87 FL (80-99) Mean Corpuscular Hemoglobin 29.2 PG (27.0-31.0) Mean Corpuscular Hemoglobin Concent 33.6 G/DL (32.0-36.0) Red Cell Distribution Width 11.0 % (11.6-14.8) L Platelet Count 170 K/UL (150-450) Mean Platelet Volume 7.7 FL (6.5-10.1) Neutrophils (%) (Auto) 75.1 % (45.0-75.0) H Lymphocytes (%) (Auto) 15.9 % (20.0-45.0) L Monocytes (%) (Auto) 7.6 % (1.0-10.0) Eosinophils (%) (Auto) 0.8 % (0.0-3.0) Basophils (%) (Auto) 0.5 % (0.0-2.0) Sodium Level 139 MMOL/L (136-145) Potassium Level 3.6 MMOL/L (3.5-5.1) Chloride Level 105 MMOL/L (98-107) Carbon Dioxide Level 25 MMOL/L (21-32) Anion Gap 9 mmol/L (5-15) Blood Urea Nitrogen 7 mg/dL (7-18) Creatinine 0.7 MG/DL (0.55-1.30) Estimat Glomerular Filtration Rate > 60 mL/min (>60) Glucose Level 83 MG/DL (74-106) Calcium Level 7.5 MG/DL (8.5-10.1) L Intake and Output 07/06/17 07/07/17 19:00 07:00 Intake Total 1355 ml 100 ml Output Total 20 ml Balance 1335 ml 100 ml IV Total 1355 ml 100 ml Estimated Blood Loss 20 ml Assessment/Plan Problem List: (1) Nausea & vomiting (2) Appendicitis, acute Assessment & Plan: S/P laparoscopic appendectomy 07/06/17. See surgery note. (3) Intractable abdominal pain Status: progressing NOMI REESE Jul 07, 2017 17:13
[2017-07-08] VITALS: BP 87/54
[2017-07-08 04:00] VITALS: BP 97/60
[2017-07-08] MEDS: HYDROcodone/Acetamin 10/325 tab ORAL PRN (05:06)
[2017-07-08 07:26] LABS: ANION GAP 6 mmol/L (5-15); BLOOD UREA NITROGEN 7 mg/dL (7-18); CALCIUM 8.9 MG/DL (8.5-10.1); CARBON DIOXIDE 29 MMOL/L (21-32); CHLORIDE 104 MMOL/L (98-107); CREATININE 0.6 MG/DL (0.55-1.30); POTASSIUM 3.8 MMOL/L (3.5-5.1); SODIUM 139 MMOL/L (136-145)
[2017-07-08 07:40] LABS: BASOPHILS % (AUTO) 0.5 % (0.0-2.0); EOSINOPHILS % (AUTO) 3.3 % (0.0-3.0); HEMATOCRIT 35.5 % (37.0-47.0); LYMPHOCYTES % (AUTO) 27.4 % (20.0-45.0); MEAN CORPUSCULAR VOLUME 87 FL (80-99); MONOCYTES % (AUTO) 9.9 % (1.0-10.0); PLATELET COUNT 190 K/UL (150-450); RED BLOOD COUNT 4.09 M/UL (4.20-5.40); RED CELL DISTRIBUTION WIDTH 11.1 % (11.6-14.8); WHITE BLOOD COUNT 5.9 K/UL (4.8-10.8)
--- NOTE | 2017-07-08 07:51 | General Progress Note ---
Progress Note Progress Note Surgery: no acute events. doing better. pain improved. no n/v/f/c. ambulatory now. tolerating diet. afebrile, HD stable, labs okay abd soft nd/nd bs+ POD #2 s/p lap appy for acute appendicitis. recovering -okay to d/c home today -Rx written -diet as tolerated -activity as tolerated (no heavy lifting for 4 weeks) -follow up with me in 1-2 weeks. office info given. Dilip Ramirez Jul 08, 2017 07:51
[2017-07-08 08:00] VITALS: BP 97/63
[2017-07-08] MEDS: Docusate 100mg cap ORAL SCH (09:03)
[2017-07-08] MEDS: Norco 5mg/325mg tab ORAL PRN ×2 (09:13→13:00)
[2017-07-08] MEDS ORDERED: COLACE100 MG ORAL (10:12)
[2017-07-08] MEDS ORDERED: NORCO 5-325 TA1 EAC1 ORAL (10:13)
[2017-07-08 12:00] VITALS: BP 97/55
--- NOTE | 2017-07-08 13:22 | Internal Med Progress Note ---
Subjective Date of Service: Jul 08, 2017 Physician Name Brian Reese Attending Physician Lance Mccormack MD Current Medications Medications (Trade) Dose Ordered Sig/Charlie Route PRN Reason Start Time Stop Time Status Last Admin Dose Admin Acetaminophen (Tylenol) 650 mg Q6H PRN ORAL Mild Pain (Pain Scale 1-3) 07/06/17 17:45 08/05/17 17:44 Acetaminophen/ Hydrocodone Bitart ([place] 10/325) 1 ea Q4H PRN ORAL Severe Pain (Pain Scale 7-10) 07/06/17 17:45 07/13/17 17:44 07/08/17 05:06 Acetaminophen/ Hydrocodone Bitart ([place] 5/325) 1 tab Q4H PRN ORAL Moderate Pain (Pain Scale 4-6) 07/06/17 17:45 07/13/17 17:44 07/08/17 13:00 Docusate Sodium (Colace) 100 mg TWICE A DAY ORAL 07/06/17 18:00 08/05/17 17:59 07/08/17 09:03 Morphine Sulfate (Morphine Sulfate) 4 mg Q4H PRN IVP Breakthrough Pain 07/07/17 11:15 07/14/17 11:14 Ondansetron HCl (Zofran) 4 mg Q4H PRN IVP Nausea & Vomiting 07/06/17 06:15 08/05/17 06:14 07/06/17 10:39 Allergies: Coded Allergies: No Known Allergies (Unverified , 10/08/16) ROS Limited/Unobtainable: No Constitutional: Reports: no symptoms HEENT: Reports: no symptoms Cardiovascular: Reports: no symptoms Gastrointestinal/Abdominal: Reports: abdominal pain Genitourinary: Reports: no symptoms Neurologic/Psychiatric: Reports: no symptoms Subjective 26 YO F admitted with abdominal pain. S/P laparoscopic appendectomy 07/06/17. Tolerating regular diet. Cover for Int Med-Dr Mccormack. Await discharge home today Objective Last Vital Signs Date Time Temp Pulse Resp B/P (MAP) Pulse Ox O2 Delivery O2 Flow Rate FiO2 07/08/17 12:00 97.0 67 16 97/55 98 07/08/17 04:00 Room Air 07/06/17 17:05 3.0 Laboratory Tests Test 07/08/17 05:10 White Blood Count 5.9 K/UL (4.8-10.8) Red Blood Count 4.09 M/UL (4.20-5.40) L Hemoglobin 12.0 G/DL (12.0-16.0) Hematocrit 35.5 % (37.0-47.0) L Mean Corpuscular Volume 87 FL (80-99) Mean Corpuscular Hemoglobin 29.4 PG (27.0-31.0) Mean Corpuscular Hemoglobin Concent 33.9 G/DL (32.0-36.0) Red Cell Distribution Width 11.1 % (11.6-14.8) L Platelet Count 190 K/UL (150-450) Mean Platelet Volume 7.3 FL (6.5-10.1) Neutrophils (%) (Auto) 59.0 % (45.0-75.0) Lymphocytes (%) (Auto) 27.4 % (20.0-45.0) Monocytes (%) (Auto) 9.9 % (1.0-10.0) Eosinophils (%) (Auto) 3.3 % (0.0-3.0) H Basophils (%) (Auto) 0.5 % (0.0-2.0) Sodium Level 139 MMOL/L (136-145) Potassium Level 3.8 MMOL/L (3.5-5.1) Chloride Level 104 MMOL/L (98-107) Carbon Dioxide Level 29 MMOL/L (21-32) Anion Gap 6 mmol/L (5-15) Blood Urea Nitrogen 7 mg/dL (7-18) Creatinine 0.6 MG/DL (0.55-1.30) Estimat Glomerular Filtration Rate > 60 mL/min (>60) Glucose Level 81 MG/DL (74-106) Calcium Level 8.9 MG/DL (8.5-10.1) Intake and Output 07/07/17 07/08/17 19:00 07:00 Intake Total 1255 ml 300 ml Output Total 300 ml Balance 955 ml 300 ml Intake Oral 700 ml 300 ml IV Total 555 ml Output Urine Total 300 ml # Voids 1 5 Objective General Appearance: WD/WN, no apparent distress, alert EENT: PERRL/EOMI, normal ENT inspection, TMs normal Neck: non-tender, normal alignment, supple Cardiovascular: normal peripheral pulses, normal rate, regular rhythm, no gallop/murmur, no JVD Respiratory/Chest: chest wall non-tender, lungs clear, normal breath sounds, no respiratory distress, no accessory muscle use Abdomen: decreased bowel sounds, distended, guarding, tender Extremities: normal range of motion, non-tender 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 See surgery note. (3) Intractable abdominal pain Assessment/Plan Discharge home today-F/U Dr Ramirez 1 week BRIAN REESE Jul 08, 2017 13:22
[2017-07-08] MEDS ORDERED: NS 500ML ONE (13:34)
--- NOTE | 2017-07-09 12:39 | Discharge Summary ---
Discharge Summary Hospital Course Date of Admission Jul 06, 2017 at 04:42 Date of Discharge Jul 08, 2017 at 13:35 Admitting Diagnosis HPI Sujatha Parra is a 26 year old female who was admitted on Jul 06, 2017 at 04:42 for Abdominal Pain/Possible Appendicitis Hospital Course [id number] Discharge Discharge Disposition Patient was discharged to Home (01) Discharge Diagnoses: Radha Hicks NP Jul 09, 2017 12:39
--- NOTE | 2017-07-09 17:15 | Discharge Summary 2 SIG ---
DATE OF ADMISSION: 07/06/2017 DATE OF DISCHARGE: 07/08/2017 CONSULTANTS: 1. Dilip Ramirez M.D. 2. Leidy Moeller M.D. BRIEF HOSPITAL COURSE: The patient is a 26-year-old female, who presented with complaints of abdominal pain that started on 07/05/2017. Pain was initially periumbilical. She denied any fever of chills. She had associated nausea and vomiting. She initially presented to [facility] Emergency Room. CT scan of the abdomen showed free fluid in the pelvis consistent with acute appendicitis. She was then transferred to [facility] for insurance purposes. She was given IV hydration. Dr. Ramirez was consulted. Initial WBC was 15. She was then placed on NPO and was started ceftriaxone and Flagyl. She underwent laparoscopic appendectomy on 07/06/2017. She tolerated procedure well. Postoperatively, she was given pain management. There was pain on the incision area. She was encouraged ambulation. She had minimal oral intake and was feeling dizzy. She attempted to ambulate, however, was dizzy. Postop day #2, pain improved and was tolerating diet. She was more ambulatory. Abdomen was soft and nondistended with positive bowel sounds. She was eventually cleared for discharge. She was tolerating diet. She was advised activity as tolerated, however, no heavy lifting for 4 weeks. She was then discharged home. FINAL DIAGNOSES: 1. Acute appendicitis status post laparoscopic appendectomy on 07/06/2017. 2. Nausea and vomiting. 3. Intractable abdominal pain. DISCHARGE MEDICATIONS: Followup with Dr. Ramirez in one to two weeks. DISCHARGE MEDICATIONS: Continue with [place] 5/325 p.r.n. and Colace 100 mg b.i.d. Lance Mccormack M.D. I have been assigned to dictate discharge summary on this account and I was not involved in the patient's management. Radha Hicks N.P. DR: TERESA JOB#: [id number] CC: RABIA
--- NOTE | 2017-07-24 11:40 | Diagnostic Imaging Report ---
APPROVED REPORT CPT Code: 95096 Present Symptoms Lower Extremity Pain: BILATERAL LOWER EXTREMITY VENOUS DUPLEX: Imaging reveals a patent deep venous system bilaterally. There is no evidence of thrombus within the femoral, popliteal or tibial segments. The greater saphenous veins are also within normal limits. Doppler indicates normal spontaneous flow within these segments.
== END 2017-07-08 13:35 | disposition home or self-care (01) | DRG 343 ==
LOC: 3E 04:42
PROC: 0DTJ4ZZ Resection of Appendix, Percutaneous Endoscopic Approach (ICD-10-PCS; principal; 2017-07-06 14:00)
DX: K35.80 Unspecified acute appendicitis (principal)
CPT/HCPCS: 36415; 71045; 80048; 81025; 83735; 84100; 85025; 85610; 85730; 93970; 94003; 94150; J2250; J2405

== ENCOUNTER 2018-03-06 23:07 | Emergency (ER) | payer BC, OTHER ==
[~2018-03-06] VITALS: Ht 162.6 cm; Wt 56.7 kg
[~2018-03-06 23:07] MED LIST: COLACE100 MG ORAL; NORCO 5-325 TA1 EAC1 ORAL
[2018-03-07] VITALS: BP 109/73
[2018-03-07] MEDS ORDERED: PREDNISONE20 MG ORAL (00:22)
--- NOTE | 2018-03-07 00:22 | Emergency Room Report ---
History of Present Illness General Chief Complaint: Allergic Reaction Source: Patient Present Illness HPI This patient c/o allergic reaction about an hour ago; took two Benadryl, feels same. C/o rash extremities, thorax. She thinks due to eating a type of nut. She has had similar to nuts in the past. No sob, wheezing, difficulty breathing. Allergies: Coded Allergies: No Known Allergies (Unverified , 10/08/16) Patient History Last Menstrual Period: a week ago Nursing Documentation-[facility] Past Medical History: No Stated History Review of Systems Constitutional: Reports: no symptoms Eye: Reports: no symptoms ENT: Reports: no symptoms Respiratory: Reports: no symptoms Cardiovascular: Reports: no symptoms Gastrointestinal: Reports: no symptoms Genitourinary: Reports: no symptoms Musculoskeletal: Reports: no symptoms Skin: Reports: no symptoms Psychiatric: Reports: no symptoms Neurological: Reports: no symptoms Endocrine: Reports: no symptoms Hematologic/Lymphatic: Reports: no symptoms Allergic: Reports: see HPI All Other Systems: negative except mentioned in HPI Physical Exam Vital Signs Date Time Temp Pulse Resp B/P (MAP) Pulse Ox O2 Delivery O2 Flow Rate FiO2 03/06/18 23:09 97.8 93 16 109/73 96 Room Air 97.9 Sp02 EP Interpretation: reviewed, normal General Appearance: normal inspection, well appearing, no apparent distress, alert, GCS 15, non-toxic Head: normocephalic, atraumatic Eyes: bilateral eye normal inspection, bilateral eye PERRL, bilateral eye EOMI ENT: normal ENT inspection, hearing grossly normal, normal pharynx, no angioedema, normal voice, moist mucus membranes Neck: normal inspection, full range of motion, supple, no meningismus, no bony tend Respiratory: normal inspection, lungs clear, normal breath sounds, no rhonchi, no respiratory distress, no retraction, no accessory muscle use, no wheezing Cardiovascular #1: normal inspection, regular rate, rhythm, no edema Gastrointestinal: normal inspection, normal bowel sounds, non tender, soft, no mass, non-distended Musculoskeletal: gait/station normal, normal range of motion Neurologic: normal inspection, alert, oriented x3, responsive, motor strength/ tone normal Psychiatric: normal inspection, judgement/insight normal, memory normal Suicide Risk Assessment: Suicidal Ideation: No Had intent to initiate attempt: No Pt's plan for suicide attempt: No Has means to complete attempt: No Skin: normal inspection, normal color, warm/dry, other - mild urticaria Medical Decision Making Diagnostic Impression: Primary Impression: Allergic reaction Last Vital Signs Date Time Temp Pulse Resp B/P (MAP) Pulse Ox O2 Delivery O2 Flow Rate FiO2 03/06/18 23:09 97.8 93 16 109/73 96 Room Air 97.9 Disposition: HOME, SELF-CARE Condition: Stable Scripts Prednisone* (PREDNISONE*) 20 Mg Tablet 40 MG ORAL DAILY, #5 TAB Prov: Suraj Logan M.D. 03/07/18 Patient Instructions: Allergies Suraj Logan M.D. Mar 07, 2018 00:22
[2018-03-07 00:30] VITALS: BP 109/73
== END 2018-03-07 01:15 | disposition home or self-care (01) ==
LOC: EMR 03-07 01:13
DX: T78.40XA Allergy, unspecified, initial encounter (principal); X58.XXXA Exposure to other specified factors, initial encounter; L50.0 Allergic urticaria
CPT/HCPCS: 99282; J7512